=== PATIENT | male | born 2005 | race Hispanic/Latino ===

== ENCOUNTER 2025-09-25 21:38 | Emergency (ER) | payer SELFPAY | END 2025-09-25 22:24 | disposition home or self-care (01) | LOC: ERS 21:38 | DX: S01.01XA Laceration without foreign body of scalp, initial encounter (principal); E10.9 Type 1 diabetes mellitus without complications; W22.03XA Walked into furniture, initial encounter | CPT/HCPCS: 12001; 99282 ==